=== PATIENT | male | born 1950 | race Caucasian/White ===

== ENCOUNTER 2017-04-30 15:40 | Emergency (ER) | payer MEDICARE, BC ==
[~2017-04-30] VITALS: Wt 97.1 kg
[~2017-04-30 15:40] MED LIST: CLEOCIN150 MG PO; FLEXERIL10 MG PO; NORCO 5-325 TA1 EACH PO; PENICILLIN-VK500 MG PO; Peridex 473 ML473 ML PO; VICODIN 5/500 505 MG PO
[2017-04-30] MEDS ORDERED: SUBOXONE 8 MG-1 EACH SL (15:52)
[2017-04-30] MEDS ORDERED: CLARITIN10 MG PO (17:12)
[2017-04-30] MEDS ORDERED: ROBITUSSIN DM 105 ML PO (17:12)
[2017-04-30] MEDS ORDERED: PREDNISONE10 MG PO (17:12)
[2017-04-30] MEDS ORDERED: FLONASE ALLERG9.9 ML NAS (17:12)
== END 2017-04-30 20:19 | disposition home or self-care (01) ==
LOC: ED 15:40
DX: B34.9 Viral infection, unspecified (principal); R03.0 Elevated blood-pressure reading, without diagnosis of hypertension; Z79.899 Other long term (current) drug therapy

== ENCOUNTER → 2017-08-03 | Outpatient (CLI) | payer MEDICARE, BC ==
[~2017-08-03] MED LIST changes: +CLARITIN10 MG PO; +FLONASE ALLERG9.9 ML NAS; +PREDNISONE10 MG PO; +ROBITUSSIN DM 105 ML PO; +SUBOXONE 8 MG-1 EACH SL
[2017-08-03 11:44] LABS: ALBUMIN 3.7 gm/dl (3.1-4.5); BILIRUBIN, DIRECT 0.2 mg/dL (0.0-0.2)
[2017-08-03 11:45] LABS: TOTAL PROTEIN 7.1 gm/dL (6.4-8.2)
[2017-08-04 07:07] LABS: HEPATITIS B SURFACE AG Negative (Negative); HEPATITIS C VIRUS ANTIBODY <0.1 s/co (0.0-0.9)
== END | disposition home or self-care (01) ==
LOC: US 09:45 → LAB 09:45 → US 10:00
PROVIDERS: Family Medicine
DX: K76.0 Fatty (change of) liver, not elsewhere classified (principal); R53.82 Chronic fatigue, unspecified

== ENCOUNTER 2017-12-15 23:25 | Emergency (ER) | payer MEDICARE, BC ==
[~2017-12-15] VITALS: Ht 172.7 cm; Wt 86.2 kg
[2017-12-15] MEDS ORDERED: ASPIRIN ADULT L81 M1 PO (23:32)
[2017-12-15] MEDS ORDERED: VIBRAMYCIN100 MG PO (23:38)
== END 2017-12-16 00:13 | disposition home or self-care (01) ==
LOC: ED 23:25
DX: S70.362A Insect bite (nonvenomous), left thigh, initial encounter (principal); Z98.890 Other specified postprocedural states; Z79.82 Long term (current) use of aspirin; W57.XXXA Bitten or stung by nonvenomous insect and other nonvenomous arthropods, initial encounter; Y93.89 Activity, other specified; Y92.89 Other specified places as the place of occurrence of the external cause; Y99.9 Unspecified external cause status

== ENCOUNTER 2018-10-15 17:30 | Emergency (ER) | payer MEDICARE, BC ==
[~2018-10-15] VITALS: Ht 175.2 cm; Wt 90.7 kg
[~2018-10-15 17:30] MED LIST changes: +ASPIRIN ADULT L81 M1 PO; +VIBRAMYCIN100 MG PO
[2018-10-15 18:32] LABS: BASO # 0.1 10*3/uL (0.0-0.1); BASO % 0.7 % (0.0-1.0); EOS # 0.9 10*3/uL (0.0-0.4); EOS % 9.7 % (1.0-4.0); HEMATOCRIT 43.4 % (42.0-52.0); HEMOGLOBIN 14.5 g/dl (14.0-18.0); LYMPH # 0.8 10*3/uL (1.3-4.4); LYMPH % 8.5 % (27.0-41.0); MEAN CELL VOLUME 88.4 fl (80.0-94.0); MEAN CORPUSCULAR HGB 29.5 pg (27.0-31.0); MEAN CORPUSCULAR HGB CONC 33.4 g/dl (33.0-37.0); MONO # 0.6 10*3/uL (0.1-1.0); MONO % 6.6 % (3.0-9.0); NEUT # 6.7 10*3/uL (2.3-7.9); NEUT % 74.2 % (47.0-73.0); PLATELET COUNT AUTOMATED 153 10*3/uL (130-400); RED BLOOD COUNT 4.91 10*6/uL (4.50-5.90); RED CELL DISTRI WIDTH 13.4 % (0-14.5)
[2018-10-15 18:53] LABS: ALBUMIN 3.8 gm/dl (3.1-4.5); ALKALINE PHOSPHATASE 96 U/L (45-117); BUN 22 mg/dl (7-24); CHLORIDE 105 mmol/L (98-107); CREATININE 1.06 mg/dL (0.70-1.30); POTASSIUM 4.4 mmol/L (3.5-5.1); SGOT/AST 24 IU/L (3-35); SGPT/ALT 28 U/L (12-78); SODIUM 140 mmol/L (136-145); TOTAL PROTEIN 7.7 gm/dL (6.4-8.2)
[2018-10-15] MEDS ORDERED: TESSALON PERLE100 M1 PO (19:17)
[2018-10-15] MEDS ORDERED: DOXYCYCLINE100 M3 PO (19:17)
[2018-10-15] MEDS ORDERED: PROVENTIL HFA6.7 GM INH (19:17)
[2018-10-15] MEDS ORDERED: PREDNISONE20 M1 PO (19:17)
== END 2018-10-15 19:40 | disposition home or self-care (01) ==
LOC: ED 17:30
PROVIDERS: Physician Assistant
DX: J40 Bronchitis, not specified as acute or chronic (principal); Z79.2 Long term (current) use of antibiotics; Z79.82 Long term (current) use of aspirin; Z79.899 Other long term (current) drug therapy

== ENCOUNTER → 2020-07-06 | Outpatient (CLI) | payer MEDICARE, BC ==
[~2020-07-06] MED LIST changes: +DOXYCYCLINE100 M3 PO; +PREDNISONE20 M1 PO; +PROVENTIL HFA6.7 GM INH; +TESSALON PERLE100 M1 PO
== END | disposition home or self-care (01) ==
LOC: COVID19 16:13
PROVIDERS: ATTEND Internal Medicine
DX: U07.1 COVID-19 (principal)

== ENCOUNTER → 2020-09-02 | Outpatient (CLI) | payer MEDICARE, BC ==
[2020-09-02 10:51] LABS: BILIRUBIN Negative (Negative); BLOOD Negative (Negative); CLARITY Clear (Clear); COLOR Dark Yellow (Yellow); GLUCOSE Negative (Negative); KETONE Trace (Negative); LEUKO ESTERASE 1+ (Negative); NITRITE Negative (Negative); PH 5.5 (4.5-8.0); SPECIFIC GRAVITY 1.025 (1.001-1.030)
[2020-09-02 10:51] LABS: BASO # 0.1 10*3/uL (0.0-0.1); BASO % 0.6 % (0.0-1.0); EOS # 0.8 10*3/uL (0.0-0.4); EOS % 9.1 % (1.0-4.0); HEMATOCRIT 43.2 % (42.0-52.0); LYMPH # 2.7 10*3/uL (1.3-4.4); LYMPH % 32.6 % (27.0-41.0); MEAN CELL VOLUME 89.1 fl (80.0-94.0); MEAN CORPUSCULAR HGB CONC 31.5 g/dl (33.0-37.0); MEAN PLATELET VOLUME 9.1 fl (9.6-12.3); MONO # 0.5 10*3/uL (0.1-1.0); MONO % 6.3 % (3.0-9.0); NEUT # 4.2 10*3/uL (2.3-7.9); NEUT % 51.2 % (47.0-73.0); PLATELET COUNT AUTOMATED 187 10*3/uL (130-400); RED BLOOD COUNT 4.85 10*6/uL (4.50-5.90); RED CELL DISTRI WIDTH 14.7 % (0-14.5); RETICULOCYTE % 1.54 % (0.50-2.50); WHITE BLOOD COUNT 8.3 10*3/uL (4.8-10.8)
[2020-09-02 11:06] LABS: BACTERIA TRACE; MUCOUS 1+
[2020-09-02 11:21] LABS: ALBUMIN 3.6 gm/dl (3.1-4.5); BUN 18 mg/dl (7-24); CHLORIDE 107 mmol/L (98-107); CHOLESTEROL 191 mg/dL (<200); CREATININE 1.06 mg/dL (0.70-1.30); GAMMA GLUTAMYL TRANSPEPTIDASE 28 U/L (15-85); HDL CHOLESTEROL 46 mg/dl (40-60); IRON 79 ug/dL (65-175); LDL CHOLESTEROL 104 mg/dL (9-159); SGOT/AST 16 IU/L (3-35); SGPT/ALT 24 U/L (12-78); SODIUM 137 mmol/L (136-145); TOTAL PROTEIN 7.5 gm/dL (6.4-8.2); TRIGLYCERIDES 207 mg/dl (<150); VLDL CHOLESTEROL 41 mg/dL (6-40)
[2020-09-02 11:28] LABS: ALKALINE PHOSPHATASE 97 U/L (45-117); TOTAL IRON BINDING CAPACITY 297 ug/dl (250-450)
[2020-09-02 11:41] LABS: FERRITIN 116.9 ng/mL (22.0-322.0); VITAMIN D, 25-HYDROXY 27.1 ng/mL (30-100)
== END | disposition home or self-care (01) ==
LOC: LAB 10:25
PROVIDERS: ATTEND Family Medicine
DX: Z12.5 Encounter for screening for malignant neoplasm of prostate (principal); R79.89 Other specified abnormal findings of blood chemistry; R53.83 Other fatigue; E78.5 Hyperlipidemia, unspecified; E55.9 Vitamin D deficiency, unspecified; R74.8 Abnormal levels of other serum enzymes

== ENCOUNTER → 2021-05-27 | Outpatient (CLI) | payer MEDICARE, BC | END | disposition home or self-care (01) | LOC: LAB 09:56 | PROVIDERS: ATTEND Ophthalmology | DX: E78.5 Hyperlipidemia, unspecified (principal) ==

== ENCOUNTER → 2021-07-02 | Outpatient (CLI) | payer MEDICARE, BC | END | disposition home or self-care (01) | LOC: RAD 11:06 | PROVIDERS: ATTEND Family Medicine | DX: M43.27 Fusion of spine, lumbosacral region (principal); M40.56 Lordosis, unspecified, lumbar region; J40 Bronchitis, not specified as acute or chronic ==

== ENCOUNTER → 2021-07-07 | Outpatient (CLI) | payer MEDICARE, BC ==
[2021-07-07 15:27] LABS: HEMATOCRIT 42.1 % (42.0-52.0); MEAN CELL VOLUME 85.9 fl (80.0-94.0); MEAN CORPUSCULAR HGB 28.4 pg (27.0-31.0); MEAN PLATELET VOLUME 8.5 fl (9.6-12.3); PLATELET COUNT AUTOMATED 158 10*3/uL (130-400); RETICULOCYTE % 1.49 % (0.50-2.50); WHITE BLOOD COUNT 11.4 10*3/uL (4.8-10.8)
[2021-07-07 15:30] LABS: BILIRUBIN Negative (Negative); BLOOD Negative (Negative); CLARITY Clear (Clear); COLOR Yellow (Yellow); GLUCOSE Negative (Negative); KETONE Negative (Negative); LEUKO ESTERASE Negative (Negative); NITRITE Negative (Negative); SPECIFIC GRAVITY >= 1.030 (1.001-1.030); UROBILINOGEN 0.2 E.U./dl (0.0-1.0)
[2021-07-07 15:42] LABS: MUCOUS TRACE; RBC 0-2 rbc/hpf (0-2)
[2021-07-07 15:44] LABS: ALBUMIN 2.8 gm/dl (3.1-4.5); ALKALINE PHOSPHATASE 57 U/L (45-117); BUN 34 mg/dl (7-24); CHLORIDE 102 mmol/L (98-107); CHOLESTEROL 189 mg/dL (<200); CREATININE 1.06 mg/dL (0.70-1.30); GAMMA GLUTAMYL TRANSPEPTIDASE 42 U/L (15-85); IRON 98 ug/dL (65-175); LDL CHOLESTEROL 65 mg/dL (9-159); POTASSIUM 4.1 mmol/L (3.5-5.1); SGOT/AST 14 IU/L (3-35); SGPT/ALT 32 U/L (12-78); SODIUM 134 mmol/L (136-145); TOTAL IRON BINDING CAPACITY 277 ug/dl (250-450); TOTAL PROTEIN 6.1 gm/dL (6.4-8.2); TRIGLYCERIDES 189 mg/dl (<150)
[2021-07-07 15:49] LABS: THYROID STIM HORMONE (HS) 0.802 uIU/ml (0.358-4.75)
[2021-07-07 15:53] LABS: ATYPICAL LYMPHS 1 % (0-0); PLATELET SUFFICIENCY NORMAL (NORMAL); TOTAL CELLS COUNTED 100 #CELLS
[2021-07-07 15:54] LABS: BURR CELLS FEW
[2021-07-07 16:47] LABS: FERRITIN 135.4 ng/mL (22.0-322.0); VITAMIN D, 25-HYDROXY 12.7 ng/mL (30-100)
[2021-07-09 03:06] LABS: TOTAL PROTEIN, SERUM 5.8 g/dL (6.0-8.5)
[2021-07-09 05:07] LABS: RHEUMATOID ARTHRITIS FACTOR <10.0 IU/mL (<14.0)
[2021-07-09 11:07] LABS: ANTI-DSDNA ANTIBODIES <1 IU/mL (0-9)
[2021-07-09 16:07] LABS: A/G RATIO 1.3 (0.7-1.7); ALBUMIN 3.3 g/dL (2.9-4.4); ALPHA-1-GLOBULIN 0.2 g/dL (0.0-0.4); ALPHA-2-GLOBULIN 0.8 g/dL (0.4-1.0); BETA GLOBULIN 0.8 g/dL (0.7-1.3); GAMMA GLOBULIN 0.7 g/dL (0.4-1.8); GLOBULIN, TOTAL 2.5 g/dL (2.2-3.9); M-SPIKE Not Observed g/dL (Not Observed); PE INTERPRETATION Comment: (.)
== END | disposition home or self-care (01) ==
LOC: LAB 14:56
PROVIDERS: ATTEND Family Medicine
DX: Z12.5 Encounter for screening for malignant neoplasm of prostate (principal); R79.89 Other specified abnormal findings of blood chemistry; R53.83 Other fatigue; E78.5 Hyperlipidemia, unspecified; E55.9 Vitamin D deficiency, unspecified

== ENCOUNTER → 2021-07-23 | Outpatient (CLI) | payer MEDICARE, BC ==
[2021-07-23 10:23] LABS: BASO % 0.2 % (0.0-1.0); EOS % 0.4 % (1.0-4.0); HEMATOCRIT 39.5 % (42.0-52.0); LYMPH # 0.8 10*3/uL (1.3-4.4); LYMPH % 8.1 % (27.0-41.0); MEAN CELL VOLUME 85.9 fl (80.0-94.0); MEAN CORPUSCULAR HGB 28.3 pg (27.0-31.0); MEAN CORPUSCULAR HGB CONC 32.9 g/dl (33.0-37.0); MEAN PLATELET VOLUME 8.8 fl (9.6-12.3); MONO # 0.4 10*3/uL (0.1-1.0); MONO % 3.9 % (3.0-9.0); NEUT # 8.8 10*3/uL (2.3-7.9); NEUT % 84.8 % (47.0-73.0); PLATELET COUNT AUTOMATED 166 10*3/uL (130-400); RED CELL DISTRI WIDTH 15.4 % (0-14.5); WHITE BLOOD COUNT 10.3 10*3/uL (4.8-10.8)
[2021-07-23 10:35] LABS: ACT PARTIAL THROMBO TIME 22.4 SECONDS (20.0-32.1); INTERNATIONAL NORM RATIO 0.9 (2.0-3.5)
[2021-07-23 10:42] LABS: ALBUMIN 2.9 gm/dl (3.1-4.5); ALKALINE PHOSPHATASE 59 U/L (45-117); BUN 28 mg/dl (7-24); CHLORIDE 95 mmol/L (98-107); CREATININE 1.33 mg/dL (0.70-1.30); POTASSIUM 3.7 mmol/L (3.5-5.1); SGOT/AST 15 IU/L (3-35); SGPT/ALT 38 U/L (12-78); SODIUM 132 mmol/L (136-145); TOTAL PROTEIN 6.2 gm/dL (6.4-8.2)
== END | disposition home or self-care (01) ==
LOC: LAB 09:56
PROVIDERS: ATTEND Urology
DX: Z01.818 Encounter for other preprocedural examination (principal); I25.10 Atherosclerotic heart disease of native coronary artery without angina pectoris

== ENCOUNTER → 2021-08-29 | Outpatient (CLI) | payer MEDICARE, BC ==
[2021-08-29 09:11] LABS: BASO % 0.4 % (0.0-1.0); EOS # 1.1 10*3/uL (0.0-0.4); EOS % 12.2 % (1.0-4.0); HEMATOCRIT 34.2 % (42.0-52.0); LYMPH # 2.4 10*3/uL (1.3-4.4); LYMPH % 26.4 % (27.0-41.0); MEAN CORPUSCULAR HGB 28.7 pg (27.0-31.0); MEAN CORPUSCULAR HGB CONC 31.6 g/dl (33.0-37.0); MEAN PLATELET VOLUME 8.5 fl (9.6-12.3); MONO # 0.8 10*3/uL (0.1-1.0); MONO % 8.4 % (3.0-9.0); NEUT # 4.8 10*3/uL (2.3-7.9); NEUT % 51.8 % (47.0-73.0); PLATELET COUNT AUTOMATED 188 10*3/uL (130-400); RED BLOOD COUNT 3.76 10*6/uL (4.50-5.90); RED CELL DISTRI WIDTH 17.6 % (0-14.5); WHITE BLOOD COUNT 9.2 10*3/uL (4.8-10.8)
[2021-08-29 09:31] LABS: ALKALINE PHOSPHATASE 87 U/L (45-117); BUN 15 mg/dl (7-24); CHLORIDE 107 mmol/L (98-107); CHOLESTEROL 166 mg/dL (<200); CREATININE 1.09 mg/dL (0.70-1.30); LDL CHOLESTEROL 89 mg/dL (9-159); SGOT/AST 11 IU/L (3-35); SGPT/ALT 18 U/L (12-78); SODIUM 139 mmol/L (136-145); TOTAL PROTEIN 6.7 gm/dL (6.4-8.2); TRIGLYCERIDES 165 mg/dl (<150)
== END | disposition home or self-care (01) ==
LOC: LAB 08:45
PROVIDERS: ATTEND Internal Medicine Cardiovascular Disease
DX: R53.83 Other fatigue (principal); R00.2 Palpitations; R06.00 Dyspnea, unspecified; I10 Essential (primary) hypertension

== ENCOUNTER → 2021-09-04 | Outpatient (CLI) | payer MEDICARE, BC ==
[~2021-09-04] MED LIST changes: +PRILOSEC20 M1 PO
== END | disposition home or self-care (01) ==
LOC: CARD 09-01 01:08
PROVIDERS: ATTEND Internal Medicine Cardiovascular Disease
DX: R00.0 Tachycardia, unspecified (principal); R06.00 Dyspnea, unspecified; R53.83 Other fatigue; R07.89 Other chest pain; R06.02 Shortness of breath

== ENCOUNTER → 2022-04-29 | Outpatient (CLI) | payer MEDICARE, BC ==
[2022-04-29 17:13] LABS: BASO # 0.1 10*3/uL (0.0-0.1); BASO % 0.9 % (0.0-1.0); EOS # 1.8 10*3/uL (0.0-0.4); EOS % 18.1 % (1.0-4.0); HEMATOCRIT 38.6 % (42.0-52.0); LYMPH # 3.1 10*3/uL (1.3-4.4); LYMPH % 31.1 % (27.0-41.0); MEAN CELL VOLUME 87.5 fl (80.0-94.0); MEAN CORPUSCULAR HGB 29.3 pg (27.0-31.0); MEAN CORPUSCULAR HGB CONC 33.4 g/dl (33.0-37.0); MEAN PLATELET VOLUME 9.3 fl (9.6-12.3); MONO # 0.6 10*3/uL (0.1-1.0); MONO % 6.4 % (3.0-9.0); NEUT # 4.3 10*3/uL (2.3-7.9); NEUT % 43.3 % (47.0-73.0); PLATELET COUNT AUTOMATED 195 10*3/uL (130-400); RED BLOOD COUNT 4.41 10*6/uL (4.50-5.90); RED CELL DISTRI WIDTH 13.3 % (0-14.5); RETICULOCYTE % 1.46 % (0.50-2.50); WHITE BLOOD COUNT 9.9 10*3/uL (4.8-10.8)
[2022-04-29 17:25] LABS: BILIRUBIN Negative (Negative); BLOOD Negative (Negative); CLARITY Clear (Clear); COLOR Yellow (Yellow); GLUCOSE Negative (Negative); KETONE Negative (Negative); LEUKO ESTERASE Negative (Negative); NITRITE Negative (Negative); PH 7.5 (4.5-8.0)
[2022-04-29 17:38] LABS: ALKALINE PHOSPHATASE 92 U/L (45-117); BUN 19 mg/dl (7-24); CHLORIDE 107 mmol/L (98-107); CHOLESTEROL 157 mg/dL (<200); GAMMA GLUTAMYL TRANSPEPTIDASE 24 U/L (15-85); IRON 59 ug/dL (65-175); LDL CHOLESTEROL 91 mg/dL (9-159); POTASSIUM 4.1 mmol/L (3.5-5.1); SGOT/AST 11 IU/L (3-35); SGPT/ALT 17 U/L (12-78); SODIUM 139 mmol/L (136-145); TOTAL PROTEIN 6.9 gm/dL (6.4-8.2); TRIGLYCERIDES 102 mg/dl (<150)
[2022-04-29 17:44] LABS: FERRITIN 72.3 ng/mL (22.0-322.0); VITAMIN D, 25-HYDROXY 19.4 ng/mL (30-100)
[2022-04-29 17:50] LABS: BACTERIA TRACE; HYALINE CAST 0-2; WBC 0-2 wbc/hpf (0-5)
== END | disposition home or self-care (01) ==
LOC: LAB 16:42
PROVIDERS: ATTEND Family Medicine
DX: E78.5 Hyperlipidemia, unspecified (principal); E55.9 Vitamin D deficiency, unspecified; Z12.5 Encounter for screening for malignant neoplasm of prostate; R79.89 Other specified abnormal findings of blood chemistry

== ENCOUNTER → 2022-06-02 | Outpatient (CLI) | payer MEDICARE, BC | LOC: LAB 12:40 | PROVIDERS: ATTEND Physician Assistant Medical | DX: R97.20 Elevated prostate specific antigen [PSA] (principal) ==

== ENCOUNTER 2022-06-11 17:27 | Emergency (ER) | payer MEDICARE, BC ==
[~2022-06-11] VITALS: Ht 175.2 cm; Wt 88.0 kg
== END 2022-06-11 19:04 | disposition left against medical advice (07) ==
LOC: ED 17:27
DX: Z53.21 Procedure and treatment not carried out due to patient leaving prior to being seen by health care provider (principal)

== ENCOUNTER → 2023-04-28 | Outpatient (CLI) | payer MEDICARE, BC ==
[2023-04-28 09:37] LABS: BASO # 0.1 10*3/uL (0.0-0.1); BASO % 0.9 % (0.0-1.0); BILIRUBIN Negative (Negative); BLOOD Negative (Negative); CLARITY Clear (Clear); COLOR Yellow (Yellow); EOS # 1.6 10*3/uL (0.0-0.4); EOS % 17.5 % (1.0-4.0); GLUCOSE Negative (Negative); HEMATOCRIT 40.2 % (42.0-52.0); KETONE Negative (Negative); LEUKO ESTERASE Negative (Negative); LYMPH # 2.6 10*3/uL (1.3-4.4); LYMPH % 29.1 % (27.0-41.0); MEAN CELL VOLUME 89.3 fl (80.0-94.0); MEAN CORPUSCULAR HGB 29.3 pg (27.0-31.0); MEAN CORPUSCULAR HGB CONC 32.8 g/dl (33.0-37.0); MEAN PLATELET VOLUME 9.3 fl (9.6-12.3); MONO # 0.6 10*3/uL (0.1-1.0); MONO % 6.6 % (3.0-9.0); NEUT % 44.5 % (47.0-73.0); NITRITE Negative (Negative); PLATELET COUNT AUTOMATED 183 10*3/uL (130-400); RETICULOCYTE % 1.69 % (0.50-2.50); SPECIFIC GRAVITY 1.025 (1.001-1.030)
[2023-04-28 10:26] LABS: ALKALINE PHOSPHATASE 90 U/L (46-116); BUN 18 mg/dl (9-23); CHLORIDE 104 mmol/L (98-107); CHOLESTEROL 164 mg/dL (<200); GAMMA GLUTAMYL TRANSPEPTIDASE 30 U/L (0-73); LDL CHOLESTEROL 90 mg/dL (9-159); POTASSIUM 3.8 mmol/L (3.4-5.1); SGPT/ALT 15 U/L (10-49); T3 UPTAKE 27.3 % (22.4-36.7); THYROXINE (T4) TOTAL 6.2 ug/dl (4.5-10.9); TOTAL PROTEIN 6.8 gm/dL (6.0-8.0); TRIGLYCERIDES 134 mg/dl (<150)
[2023-04-28 10:40] LABS: VITAMIN D, 25-HYDROXY 22.7 ng/mL (30-100)
[2023-04-28 11:03] LABS: BACTERIA 2+; MUCOUS 2+
== END | disposition home or self-care (01) ==
LOC: LAB 09:12
PROVIDERS: ATTEND Family Medicine
DX: Z12.5 Encounter for screening for malignant neoplasm of prostate (principal); R79.89 Other specified abnormal findings of blood chemistry; R53.83 Other fatigue; R74.8 Abnormal levels of other serum enzymes; E55.9 Vitamin D deficiency, unspecified

== ENCOUNTER → 2023-05-21 | Outpatient (CLI) | payer MEDICARE, BC ==
[~2023-05-21] MED LIST changes: +AMOX-CLAV 875-1 EACH PO; +CIALIS2.5 MG PO; +VITAMIN D310 MC3 PO
== END | disposition home or self-care (01) ==
LOC: US 07:30
PROVIDERS: ATTEND Physician Assistant Medical
DX: N20.0 Calculus of kidney (principal); R31.0 Gross hematuria; N40.1 Benign prostatic hyperplasia with lower urinary tract symptoms

== ENCOUNTER 2023-05-23 20:47 | Emergency (ER) | payer MEDICARE, BC ==
[~2023-05-23] VITALS: Ht 175.2 cm; Wt 90.7 kg
[~2023-05-23 20:47] MED LIST changes: -AMOX-CLAV 875-1 EACH PO; -CIALIS2.5 MG PO; -VITAMIN D310 MC3 PO
[2023-05-23] MEDS ORDERED: AMOX-CLAV 875-1 EACH PO (21:15)
[2023-05-23] MEDS ORDERED: VITAMIN D310 MC3 PO (21:53)
[2023-05-23] MEDS ORDERED: CIALIS2.5 MG PO (21:54)
== END 2023-05-23 22:03 | disposition home or self-care (01) ==
LOC: ED 20:47
DX: B37.0 Candidal stomatitis (principal); Z98.890 Other specified postprocedural states

== ENCOUNTER → 2024-02-01 | Outpatient (CLI) | payer MEDICARE, BC ==
[~2024-02-01] MED LIST changes: +AMOX-CLAV 875-1 EACH PO; +CIALIS2.5 MG PO; +IOHEXOL 300 MG/ML 100 ML VIAL ONE; +IOHEXOL 350 MG/ML 100 ML VIAL IV ONE; +VITAMIN D310 MC3 PO
== END ==
LOC: CT 00:31
PROVIDERS: ATTEND Urology
DX: R31.9 Hematuria, unspecified (principal)

== ENCOUNTER → 2024-09-08 | Outpatient (CLI) | payer MEDICARE, BC ==
[~2024-09-08] MED LIST changes: -IOHEXOL 300 MG/ML 100 ML VIAL ONE; -IOHEXOL 350 MG/ML 100 ML VIAL IV ONE
[2024-09-08 15:38] LABS: HEMATOCRIT 39.1 % (42.0-52.0); MEAN CELL VOLUME 90.9 fl (80.0-94.0); MEAN CORPUSCULAR HGB 28.8 pg (27.0-31.0); MEAN CORPUSCULAR HGB CONC 31.7 g/dl (33.0-37.0); MEAN PLATELET VOLUME 9.2 fl (9.6-12.3); PLATELET COUNT AUTOMATED 192 10*3/uL (130-400); RED CELL DISTRI WIDTH 13.2 % (0-14.5); RETICULOCYTE % 1.39 % (0.50-2.50); WHITE BLOOD COUNT 8.3 10*3/uL (4.8-10.8)
[2024-09-08 15:40] LABS: MANUAL DIFF REFLEX YES
[2024-09-08 15:52] LABS: BILIRUBIN Negative (Negative); BLOOD Negative (Negative); CLARITY Clear (Clear); COLOR Yellow (Yellow); GLUCOSE Negative (Negative); KETONE Negative (Negative); LEUKO ESTERASE Negative (Negative); NITRITE Negative (Negative); PH 5.5 (4.5-8.0); SPECIFIC GRAVITY 1.025 (1.001-1.030)
[2024-09-08 15:58] LABS: BASOPHILS 2 % (0-1); PLATELET SUFFICIENCY NORMAL (NORMAL); TOTAL CELLS COUNTED 100 #CELLS
[2024-09-08 16:29] LABS: ALKALINE PHOSPHATASE 88 U/L (46-116); BUN 17 mg/dl (9-23); CHLORIDE 103 mmol/L (98-107); CHOLESTEROL 169 mg/dL (<200); GAMMA GLUTAMYL TRANSPEPTIDASE 27 U/L (0-73); LDL CHOLESTEROL 95 mg/dL (9-159); POTASSIUM 4.6 mmol/L (3.4-5.1); SGPT/ALT 9 U/L (5-49); T3 UPTAKE 35.3 % (22.4-36.7); TOTAL PROTEIN 6.8 gm/dL (6.0-8.0); TRIGLYCERIDES 150 mg/dl (<150)
[2024-09-08 16:31] LABS: VITAMIN D, 25-HYDROXY 24.3 ng/mL (30-100)
[2024-09-08 16:39] LABS: MUCOUS 1+
== END | disposition home or self-care (01) ==
LOC: LAB 15:04
PROVIDERS: ATTEND Family Medicine
DX: Z12.5 Encounter for screening for malignant neoplasm of prostate (principal); R79.89 Other specified abnormal findings of blood chemistry; R53.83 Other fatigue; E55.9 Vitamin D deficiency, unspecified; E78.5 Hyperlipidemia, unspecified

== ENCOUNTER → 2025-01-22 | Outpatient (CLI) | payer MEDICARE, BC ==
[2025-01-22 17:17] LABS: HEMATOCRIT 40.5 % (42.0-52.0); MEAN CELL VOLUME 89.4 fl (80.0-94.0); MEAN CORPUSCULAR HGB 29.1 pg (27.0-31.0); MEAN CORPUSCULAR HGB CONC 32.6 g/dl (33.0-37.0); MEAN PLATELET VOLUME 9.3 fl (9.6-12.3); PLATELET COUNT AUTOMATED 186 10*3/uL (130-400); RED BLOOD COUNT 4.53 10*6/uL (4.50-5.90); RED CELL DISTRI WIDTH 13.7 % (0-14.5); RETICULOCYTE % 1.47 % (0.50-2.50); WHITE BLOOD COUNT 9.8 10*3/uL (4.8-10.8)
[2025-01-22 17:21] LABS: BILIRUBIN Negative (Negative); BLOOD Negative (Negative); CLARITY Clear (Clear); COLOR Yellow (Yellow); GLUCOSE Negative (Negative); KETONE Trace (Negative); LEUKO ESTERASE Trace (Negative); NITRITE Negative (Negative); PH 6.5 (4.5-8.0); SPECIFIC GRAVITY 1.025 (1.001-1.030)
[2025-01-22 17:33] LABS: BACTERIA TRACE; MUCOUS 1+
[2025-01-22 17:43] LABS: BASOPHILS 1 % (0-1); PLATELET SUFFICIENCY NORMAL (NORMAL); TOTAL CELLS COUNTED 100 #CELLS
[2025-01-22 17:44] LABS: OVALOCYTES FEW
[2025-01-22 17:53] LABS: VITAMIN D, 25-HYDROXY 30.1 ng/mL (30-100)
[2025-01-22 17:54] LABS: ALKALINE PHOSPHATASE 87 U/L (46-116); BUN 15 mg/dl (9-23); CHLORIDE 102 mmol/L (98-107); CHOLESTEROL 186 mg/dL (<200); GAMMA GLUTAMYL TRANSPEPTIDASE 25 U/L (0-73); LDL CHOLESTEROL 87 mg/dL (9-159); POTASSIUM 4.3 mmol/L (3.4-5.1); SGPT/ALT 9 U/L (5-49); T3 UPTAKE 35.3 % (22.4-36.7); TOTAL PROTEIN 6.8 gm/dL (6.0-8.0); TRIGLYCERIDES 281 mg/dl (<150); URIC ACID 5.9 mg/dL (3.7-9.2)
[2025-01-23 12:07] LABS: ANTI-DSDNA ANTIBODIES <1 IU/mL (0-9)
[2025-01-23 17:07] LABS: A/G RATIO 1.2 (0.7-1.7); ALBUMIN 3.5 g/dL (2.9-4.4); ALPHA-1-GLOBULIN 0.2 g/dL (0.0-0.4); ALPHA-2-GLOBULIN 0.7 g/dL (0.4-1.0); GLOBULIN, TOTAL 2.9 g/dL (2.2-3.9)
== END | disposition home or self-care (01) ==
LOC: LAB 16:45
PROVIDERS: ATTEND Family Medicine
DX: Z12.5 Encounter for screening for malignant neoplasm of prostate (principal); E55.9 Vitamin D deficiency, unspecified; E78.5 Hyperlipidemia, unspecified; R53.83 Other fatigue; R79.89 Other specified abnormal findings of blood chemistry; R74.8 Abnormal levels of other serum enzymes